=== PATIENT | female | born 1985 | race Caucasian/White ===

== ENCOUNTER → 2019-06-15 09:21 | Outpatient (CLI) | payer OTHER, SELFPAY ==
--- NOTE | ~2019-06-15 | MR_ITS ---
EXAMINATION: MR lumbar spine wo con EXAM DATE: 06/15/2019 10:16 INDICATION: Mid to low back pain for 5 years. TECHNIQUE: Multi-sequential, multiplanar MR images of the lumbar spine were obtained without contrast . Sagittal T1, T2, T2 fat saturation images. Axial T2 weighted images. Comparison is made to prior examination from 06/11/18. FINDINGS: The vertebral bodies are aligned in the AP dimension. Vertebral body and disc heights are w ell-maintained. There are no suspicious marrow signal abnormalities. The conus medullaris terminates at the T12-L1 level and has normal signal intensity and morphology. Paraspinal soft tissue is unrema rkable. Level by level evaluation: T12-L1: Disc does not extend beyond the endplate margin. Facet arthropathy: None. Neural foraminal stenosis: No stenosis. Central canal stenosis: No stenosis. L1-L2: Disc does not extend beyond the endplate margin. Facet arthropathy: Mild. Neural foraminal stenosis: No stenosis. Central canal stenosis: No stenosis. L2-L3: There is a minimal diffuse disc bulge. Facet arthropathy: Mild. Neural foraminal stenosis: Minimal left. Central canal stenosis: No stenosis. L3-L4: There is a mild diffuse disc bulge. Facet arthropathy: Mild. Neural foraminal stenosis: Mild left. Central canal stenosis: No stenosis. L4-L5: There is a mild diffuse disc bulge. Facet arthropathy: Mild. Neural foraminal stenosis: Mild bilateral. Central canal stenosis: Mild. L5-S1: There is a mild diffuse disc bulge. Facet arthropathy: Mild. Neural foraminal stenosis: Mild bilateral. Central canal stenosis: Mild. Very minimal interval progression in the mild lumbar spondylosis compared to previous study. IMPRESSION: Mild lumbar spondylosis. Reviewed, dictated and finalized at location A. NUMBERER IMPRESSION: Mild lumbar spondylosis.
--- NOTE | ~2019-06-15 | MR_ITS ---
EXAMINATION: MR thoracic spine wo con EXAM DATE: 06/15/2019 10:16 INDICATION: Radiculopathy. Mid and low back pain. TECHNIQUE: Multi-sequential, multiplanar MR images of the thoracic spine were obtained without contra st. Sagittal T1, T2, T2 fat saturation, axial T2 weighted images reviewed. Comparison is made to kishor or examination from 06/11/2018. FINDINGS: There is mild mid thoracic and lower thoracic disc disease. The thoracic neural foramen and central canal widely patent. The vertebral bodies are aligned in the AP dimension. There are no susp icious marrow signal abnormalities. The spinal cord signal intensity and intrinsic morphology is norm al. Evidence of mild thoracic facet arthropathy. Paraspinal soft tissue is unremarkable. IMPRESSION: 1. Mild thoracic spondylosis unchanged. Reviewed, dictated and finalized at location A. MATIC ENGRAVER
== END ==
PROVIDERS: Visit Provider Physician Assistant
DX: M54.17 Radiculopathy, lumbosacral region (principal); M47.817 Spondylosis without myelopathy or radiculopathy, lumbosacral region; M47.896 Other spondylosis, lumbar region; M47.894 Other spondylosis, thoracic region
CPT/HCPCS: 72146; 72148

== ENCOUNTER 2020-11-25 18:09 | Emergency (ER) | payer OTHER, SELFPAY ==
[2020-11-25 18:18] VITALS: BP 114/64; PULSE 71; RESP 18; TEMP 37.1; O2SAT 100
--- NOTE | 2020-11-25 18:27 | ED.GENADULT ---
HPI - General Adult General Chief complaint: Urogenital-Female Stated complaint: Vaginal discharge, itching Time Seen by Provider: 11/25/20 18:27 Source: patient and RN notes reviewed Mode of arrival: ambulatory Limitations: no limitations History of Present Illness HPI narrative: 35-year-old female presents with urinary complaints for the past 7 days. Shirin reports itching with clear discharge after menstrual cycle for approximately 1 week now has dysuria. Monistat 1 week ago with some relief and Azo with little to no relief. Dysuria consists of burning and frequency. Denies fever. ?No significant pelvic pain. ?No vaginal discharge.? No concerns for STDs. ?Exacerbating factors urinating.? Denies hematuria or vaginal bleeding. ?LMP 1 week ago. No flank pain. ?Denies nausea, vomiting, and abdominal pain.? Tolerating liquids well.? Remains active. ?The patient reports she has not been diagnosed with COVID-19. The patient reports she is not waiting for the results of a COVID-19 lab test. ?The patient reports she does not have chills, weakness, or fatigue. ?The patient reports he does not have a new or worsening cough or shortness of breath. ?Denies chest pain. The patient reports he does not have any rhinorrhea, congestion, loss of taste or smell, sore throat, and diarrhea. ?Denies recent traveling. Denies concerns for COVID-19 or exposures. ?At this time, the patient is not suspected of having COVID-19. ? Some parts of this dictation were generated by voice recognition software and may contain typographical and/or grammatical inaccuracies. Related Data Allergies Allergy/AdvReac Type Severity Reaction Status Date / Time No Known Allergies Allergy Verified 11/25/20 18:11 Review of Systems Review of Systems: Narrative: CONSTITUTIONAL: Denies fever, chills, sweats. EYES: Denies visual changes, redness, discharge. ENT: Denies rhinorrhea, congestion, sore throat, otalgia. CARDIOVASCULAR: Denies chest pain, palpitations, edema. RESPIRATORY: Denies dyspnea, wheezing, cough. GASTROINTESTINAL: Denies abdominal pain, nausea, vomiting, diarrhea. GENITOURINARY: Complains of vaginal itching, clear discharge, dysuria (burning and frequency). Denies hematuria. SKIN: Denies rash or itching. MUSCULOSKELETAL: Denies acute back pain, joint pain, or myalgia. NEUROLOGIC: Denies numbness or focal weakness. PSYCHIATRIC: Denies anxiety or depression. All systems reviewed & are unremarkable except as noted in HPI and below. [facility] Past Medical History Medical History (Updated 12/02/20 @ 17:46 by LANEY Short) Back pain spinal stimulator Carpal tunnel syndrome Cubital tunnel syndrome Surgical History Surgical History (Updated 12/02/20 @ 17:46 by LANEY Short) History of carpal tunnel surgery bilateral History of elbow surgery cubital tunnel surgery-bilateral History of tubal ligation Family History Family History (Updated 12/02/20 @ 17:47 by LANEY Short) Father Hypertension Hypercholesteremia Mother Hypercholesteremia Hypertension Diabetes mellitus Type 2 Social History Social History (Updated 12/02/20 @ 17:52 by LANEY Short) Smoking status: Never smoker Tobacco type: cigarettes Second hand tobacco smoke exposure: No Alcohol intake: unknown Substance use: never Substance use type: does not use Living arrangements: with family Occupation/Education: occupation Gender identity (if verbalized by the patient): Female Sexual Orientation (if Verbalized by the Patient): Straight or Heterosexual Comments At time of signature, agree with the nurse past medical, surgical, social, and family history.? There is relevant patient's history pertinent to the presenting complaint, no relevant family history pertinent to the presenting complaint. Exam Narrative: Exam Narrative: GENERAL: This is a well-nourished, well-developed patient, in no apparent distress.? T
== END 2020-11-25 18:56 | disposition home or self-care (01) ==
PROVIDERS: Emergency Provider Nurse Practitioner Family
DX: N76.0 Acute vaginitis (principal); R30.0 Dysuria
CPT/HCPCS: 81003; 87086; 99213; G0463

== ENCOUNTER 2021-08-31 17:55 | Emergency (ER) | payer OTHER, SELFPAY ==
[2021-08-31 18:24] VITALS: BP 116/62; PULSE 85; RESP 18; TEMP 36.9; O2SAT 99
--- NOTE | 2021-08-31 18:35 | ED.EAR ---
HPI - Ear Problem General Chief complaint: Ear Stated complaint: Nose Pain,Bilateral Ear Irritation Time Seen by Provider: 08/31/21 18:35 Source: patient Mode of arrival: ambulatory Limitations: no limitations History of Present Illness HPI Narrative: Shirin Barros is a 36 yo female with sinus issues, bulging disks requiring stimulator placement, and osteoarthritis, had 2 bloody noses at work yesterday, both ears and nose are hurting her. She told the tech that she has had multiple problems with her ears and that her primary care physician is planning on referring her to an ENT if she continues to have problems Related Data Allergies Allergy/AdvReac Type Severity Reaction Status Date / Time No Known Allergies Allergy Verified 08/31/21 18:40 Review of Systems Review of Systems: CONSTITUTIONAL: Denies fever, chills, sweats. EYES: Denies visual changes, redness, discharge. ENT: Denies rhinorrhea, has congestion, sore throat, has bilateral otalgia. CARDIOVASCULAR: Denies chest pain, palpitations, edema. RESPIRATORY: Denies dyspnea, wheezing, cough GASTROINTESTINAL: Denies abdominal pain, nausea, vomiting, diarrhea. GENITOURINARY: Denies dysuria, hematuria, abnormal discharge SKIN: Denies rash or itching. NEUROLOGIC: Denies numbness, or focal weakness. PSYCHIATRIC: Denies anxiety or depression. [facility] Past Medical History Medical History Back pain spinal stimulator Carpal tunnel syndrome Cubital tunnel syndrome Surgical History Surgical History History of carpal tunnel surgery bilateral History of elbow surgery cubital tunnel surgery-bilateral History of tubal ligation Family History Family History Father Hypertension Hypercholesteremia Mother Hypercholesteremia Hypertension Diabetes mellitus Type 2 Social History Social History Smoking status: Never smoker Tobacco type: cigarettes Second hand tobacco smoke exposure: No Alcohol intake: unknown Substance use: never Substance use type: does not use Gender identity (if verbalized by the patient): Female Sexual Orientation (if Verbalized by the Patient): Straight or Heterosexual Comments At time of signature, I agree with nursing past medical, surgical, social and family history. There is no relevant family history pertinent to the presenting complaint. Exam Narrative: GENERAL: This is a well-nourished, well-developed patient, in mild distress. HEAD: normocephalic, atraumatic. EYES: PERRL. Sclera clear/white. Vision is grossly intact. EARS: External ears normal, auditory canals mild erythema on left, erythema on right and without drainage, TMs normal without perforation. Hearing grossly intact. NOSE: External nose normal without nasal discharge, nares without redness, no rhinorrhea. Patient complaining of tenderness of nose although turbinates not red THROAT: Mucous membranes moist, posterior pharynx pink no exudate NECK: Neck supple, non-tender CARDIOVASCULAR: Regular rate and rhythm without murmurs, gallops, or rubs. RESPIRATORY: Clear to auscultation. Breath sounds equal bilaterally. No wheezes, rales, or rhonchi. GASTROINTESTINAL: Abdomen soft, SKIN: warm, intact with no suspicious lesions or rash, good texture and turgor. NEURO: awake, alert, and oriented to person, place and time. There were no obvious focal neurologic abnormalities. Steady gait EXTREMITIES: Normal range of motion. BACK: Nontender without deformity Course Course Emergency Course: Patient here complaining of ear pain and sinus stuffiness for the last 2 3 days and she states that her nose and ears are painful to touch Physical exam does not back up the level of discomfort patient is verbalizing however patient has had recurrent ear problems
== END 2021-08-31 18:52 | disposition home or self-care (01) ==
PROVIDERS: Emergency Provider Nurse Practitioner; PCP Nurse Practitioner
DX: H66.004 Acute suppurative otitis media without spontaneous rupture of ear drum, recurrent, right ear (principal); M19.90 Unspecified osteoarthritis, unspecified site; Z96.82 Presence of neurostimulator
CPT/HCPCS: 99213; G0463

== ENCOUNTER 2022-05-15 08:02 | Outpatient (CLI) | payer OTHER, SELFPAY | END 2022-05-15 08:03 | disposition home or self-care (01) | PROVIDERS: PCP Nurse Practitioner; Visit Provider Obstetrics & Gynecology | DX: R10.2 Pelvic and perineal pain (principal); Z01.818 Encounter for other preprocedural examination | CPT/HCPCS: 36415; 86850; 86900; 86901 ==

== ENCOUNTER 2022-05-17 01:03 | Day surgery (SDC) | payer OTHER, SELFPAY ==
[2022-05-09 14:16] VITALS: BMI 29.2
--- NOTE | 2022-05-09 14:21 | PC.NURSE ---
Report to the Outpatient Waiting Room, entrance under the green pavilion located off [facility], at time 1:15 on date 05/17/22. Planned Procedure Time: 3:15. Time changes happen often and if your time is changed the preop area will call you the afternoon before. - You and your visitor will be asked to self-screen and do not enter if you have any COVID symptoms. - Only one visitor is requested with a max of two and NO children visitors are allowed at this time. - The patient visitor may be requested to leave or wait in car when not with patient due to distancing restrictions. - A mask is REQUIRED within the hospital. Patients may have clear liquids (water, carbonated beverages, clear teas, apple juice) until 3 hours prior to surgery (12:15) with a maximum of 20 ounces. - No food from midnight until time of surgery Take the following medications with a SIP of water the morning of surgery: N/A Medications to discontinue per physician: N/A Date to take last dose: N/A Please no make-up, nail palestinian, hairspray, perfume, deodorant, or body powder the day of surgery. No jewelry (including any body piercings) or valuables the day of surgery, leave them at home. Please take a shower or bath the night before, or the morning of, surgery with an antibacterial soap. Wear comfortable, loose fitting clothing. - Jewelry must be removed prior to entering the operating room. Rings and piercings that are not removed may be cut off. - The hospital will not accept responsibility for valuables. - Please leave all valuables, including medications, at home the day of surgery. If you are going home after surgery, a licensed food service driver must drive you home. - NO public transportation without another adult if you receive anesthesia. - We recommend that an adult stay with you for 24 hours following discharge. - We also recommend that you do not drive, make important decision, drink alcoholic beverages, or take any drugs that were not prescribed by your health care provider for at least 24 hours after your discharge time. Follow any additional instructions given to you from your surgeon. If you or anyone in your household have experienced Covid symptoms in the past week, please notify your surgeon or the nurse liaison at the phone number below for possible testing. Telephone instructions given to PT - JOVAN GREGORY and asked if any additional questions and then verbalized understanding. Patient advised to call surgeon office or pre surgery nurse liaison [phone] if any additional questions.
--- NOTE | 2022-05-15 07:55 | P.HP_ITS ---
H&P: HPI History of Present Illness Date/Time: 05/15/22 07:55 Chief Complaint: Pelvic pain and right ovarian cyst Narrative: /37-year-old female with pelvic pain and discomfort. She is right ovarian pain. She has had negative testing for STDs under periods have been heavy but she can live with that. She is offered laparoscopy with possible right salpingo- oophorectomy. Risks and benefits reviewed including but not exclusive of aspiration pneumonia, bleeding, transfusion, perforation injury to bowel, bladder, ureters, or other internal organs with need for open laparotomy. She received the [employer] handout entitled laparoscopy. She had all questions answered and asked to proceed PMFSH Past Medical History Medical History Back pain spinal stimulator Carpal tunnel syndrome Cubital tunnel syndrome Surgical History Surgical History History of carpal tunnel surgery bilateral History of elbow surgery cubital tunnel surgery-bilateral History of tubal ligation Family History Family History Father Hypertension Hypercholesteremia Mother Hypercholesteremia Hypertension Diabetes mellitus Type 2 Social History Social History Smoking status: Never smoker Tobacco type: cigarettes Second hand tobacco smoke exposure: No Alcohol intake: never Substance use: never Substance use type: does not use Additional living arrangements comments: SON Gender identity (if verbalized by the patient): Female Sexual Orientation (if Verbalized by the Patient): Straight or Heterosexual Spiritual care concerns: No Meds Home Medications and Allergies Home Medications Medication Instructions Recorded Confirmed Type No Home Medications 05/09/22 05/09/22 History Allergies Allergy/AdvReac Type Severity Reaction Status Date / Time No Known Allergies Allergy Verified 05/09/22 14:16 Exam Const: General: cooperative, healthy appearing and comfortable Nutritional Appearance: average body habitus Orientation/consciousness: oriented to person, oriented to place and oriented to time HENMT: Head: normal to inspection Resp: Effort & Inspection: normal respiratory effort Cardio: Rate: regular rate Rhythm: regular rhythm Heart sounds: S1 normal heart sound present and S2 normal heart sound present GI: Inspection: normal to inspection : External Female Exam: normal external appearance Speculum Exam - Vagina: normal appearance of the vagina Speculum Exam - Cervix: normal appearance of the cervix Bimanual exam- vagina & uterus: enlarged Bimanual Exam- Adnexa, other: tender on the right Assessment and Plan Assessment and plan (1) Pelvic pain: Code(s): R10.2 - Pelvic and perineal pain Status: Acute (2) Right ovarian cyst: Code(s): N83.201 - Unspecified ovarian cyst, right side Status: Acute Plan Laparoscopy with possible right salpingo-oophorectomy
--- NOTE | 2022-05-16 12:12 | WPDANESEPPF ---
Anes - Initial Pre Proc Eval Procedure: Operation Date: 05/17/22 14:15 Proposed Procedures p Diagnostic Laparoscopy, Possible Right Salpingo-oophorectomy - Franco Betancourt MD Date/Time: 05/16/22 12:12 Surgeon: Franco Betancourt MD Pre Op Diagnosis: Pelvic Pain, Irg bleeding Patient Data Age: 37 Gender: F Height: 1.63 m Weight: 77.11 kg Allergies Allergy/AdvReac Type Severity Reaction Status Date / Time No Known Allergies Allergy Verified 05/17/22 12:05 Home Medications Medication Instructions Recorded Confirmed Type hydrocodone 5 mg-acetaminophen 325 1 tablet PO Q4H PRN pain #20 tabs 05/17/22 Rx mg tablet Patient hx anesthesia problems: none Family hx anesthesia problems: none Results Review: All pre-operative results and documents have been reviewed as part of the pre-operative evaluation. [facility] Past Medical History Medical History Back pain spinal stimulator Carpal tunnel syndrome Cubital tunnel syndrome Surgical History Surgical History History of carpal tunnel surgery bilateral History of elbow surgery cubital tunnel surgery-bilateral History of tubal ligation Family History Family History Father Hypertension Hypercholesteremia Mother Hypercholesteremia Hypertension Diabetes mellitus Type 2 Social History Social History Smoking status: Never smoker Tobacco type: cigarettes Second hand tobacco smoke exposure: No Alcohol intake: never Substance use: never Substance use type: does not use Living arrangements: with family Additional living arrangements comments: SON Gender identity (if verbalized by the patient): Female Sexual Orientation (if Verbalized by the Patient): Straight or Heterosexual Spiritual care concerns: No Anes - Eval Final PreProcedure Day of Procedure 05/16/22 12:12 Patient weight: overweight Heart: regular rate and rhythm Lungs: clear to auscultation Airway: Mallampati scale class II Neurological: alert and oriented Last oral intake: >/= 8 hours ASA classification: II Emergent: no Anesthetic plan: proceed Anesthesia type and monitoring: general ETT and standard monitoring Results Review: All pre-operative results and documents have been reviewed as part of the pre-operative evaluation. Informed Consent: The patient's anesthetic plan and its attendant risks and benefits were discussed with the patient/family/POA. Questions were solicited and answers provided to the satisfaction of the patient/family/POA.
[2022-05-17] VITALS (9 sets, daily range): BP systolic 93–114; BP diastolic 42–75; PULSE 50–86; RESP 12–18; TEMP 36.1–37.1; O2SAT 59–100
--- NOTE | 2022-05-17 06:21 | WPDHPUPDATE1 ---
History and Physical Update Update Date/Time: 05/17/22 06:21 History and Physical has been reviewed, including an updated exam of the patient. There are NO changes in the patient's condition. Risks, benefits, and alternatives have been discussed and questions answered. Patient agrees to proceed with procedure.
[2022-05-17] MEDS: ACETAMINOPHEN 500 MG TABLET 1000 MG PO (12:10)
[2022-05-17] MEDS: LACTATED RINGERS 1,000 ML 30 ML IV CONT ×2 (12:39→14:21)
[2022-05-17] MEDS: KETOROLAC 15 MG/ML VIAL (*BKC) IV PUSH (12:39)
--- NOTE | 2022-05-17 13:38 | P.OP_ITS ---
Procedure Note - Detailed Date of Procedure 05/17/22 Pre-op Diagnosis Pelvic Pain, Irg bleeding Post-op Diagnosis Other (Endometriosis) Procedure Performed laparoscopic destruction endometriosis Surgeon Franco Betancourt MD Anesthesia General Indications cyst 37 year female history of pelvic pain dyspareunia and irregular bleeding. Findings Mildly enlarged uterus was noted which was floppy and retroverted. Endometrial implants in the form of powder burn were seen right ovary and right uterosacral ligament. About 20cc of serosanguineous fluid was also seen in the pelvis. Appendix was normal. The opposite ovary was normal. Description of Procedure Patient was prepped draped in normal sterile fashion placed in dorsal lithotomy position. Under excellent general trach anesthesia weighted speculum placed posterior fornix vagina. Anterior lip of cervix grasped with single- tooth tenaculum. The Gandara's cannula inserted the cervix attached to the single-tooth. This was to be used later you for uterine manipulation. The bladder emptied of clear urine in the gloves were changed. A supraumbilical incision made the Veress needle passed in the abdomen. Abdomen filled with CO2 gas [id number]. The 5mm trocar advanced directly into the abdomen with the Optiview and no injury seen. Patient placed in Trendelenburg and a suprapubic incision made. The 5mm trocar advanced under direct visualization assuring no injury. The above findings were seen and met an Ten Masters window was seen along the right uterosacral ligament the cul-de-sac had areas of powder burn endometriosis. The right ovary had an area of endometriosis and which was cauterized at 35 w per 2nd. The appendix appeared grossly within normal limits no other abnormalities were seen. The areas of endometriosis were then cauterized at 35 w per 2nd with monopolar cautery. Irrigation was undertaken until clear. The lower sites removed. The gas removed from the abdomen. The upper site removed. The incisions closed with 4 Monocryl glue. Instruments removed from the vagina. All sponge, needle, instrument counts were correct there were no immediate complications Estimated Blood Loss 5 Drains No Packing No Pathology None sent Complications No immediate complications Condition Stable Disposition PACU
[2022-05-17] MEDS: fentaNYL CITRATE INJ (*CRX) 100 MCG/2 ML VIAL 25 MCG IV PUSH ×4 (14:02→14:23)
[2022-05-17] MEDS: oxyCODONE HCL (*CRX) 5 MG TAB IR PO (15:00)
== END 2022-05-17 15:51 | disposition home or self-care (01) ==
PROVIDERS: PCP Nurse Practitioner; Visit Provider Obstetrics & Gynecology
PROC: (CPT 49320; principal; 2022-05-17 14:15)
DX: N80.101 Endometriosis of right ovary, unspecified depth (principal); N80.3C1 Endometriosis of the right uterosacral ligament, unspecified depth; N93.9 Abnormal uterine and vaginal bleeding, unspecified; R10.2 Pelvic and perineal pain; N94.10 Unspecified dyspareunia
CPT/HCPCS: 58662; 36415; 86850; 86900; 86901; A9270; J0330; J1100; J1885; J2250; J2405; J2704; J2710; J3010; J7030; J7120

== ENCOUNTER 2022-09-30 07:50 | Outpatient (CLI) | payer OTHER, SELFPAY ==
[2022-09-30 08:31] LABS: Basophils Percent Auto 0.6 % (0.2-1.2); Eosinophils Absolute Auto 0.1 K/mm3 (0-0.3); Eosinophils Percent Auto 2.1 % (0-4.4); Hematocrit 38.9 % (37.0-47.0); Hemoglobin 13.1 g/dL (12.0-15.0); Immature Granulocyte Absolute 0.03 K/mm3 (0.00-0.031); Immature Granulocyte Percent A 0.5 % (0-0.5); Lymphocytes Absolute Auto 2.78 K/mm3 (0.9-3.2); Lymphocytes Percent Auto 44.1 % (18.3-44.2); Mean Corpuscular HGB Conc 33.7 g/dl (32-36); Mean Corpuscular Hemoglobin 31.6 pg (26-34); Mean Platelet Volume 9.4 fl (7.4-10.4); Monocytes Absolute Auto 0.5 K/mm3 (0.1-0.6); Monocytes Percent Auto 7.8 % (2.6-8.5); Neutrophils Absolute Auto 2.8 K/mm3 (1.3-6.7); Neutrophils Percent Auto 44.9 % (45.5-73.1); Platelet Count Result 228 k/mm3 (150-375); Red Blood Count 4.14 M/mm3 (4.2-5.4); Red Cell Distribution Width 11.9 % (11.5-14.5); White Blood Count 6.3 K/mm3 (4.5-10.0)
== END 2022-09-30 07:51 | disposition home or self-care (01) ==
PROVIDERS: PCP Nurse Practitioner; Visit Provider Obstetrics & Gynecology
DX: R10.2 Pelvic and perineal pain (principal); Z01.818 Encounter for other preprocedural examination
CPT/HCPCS: 36415; 85025; 86850; 86900; 86901

== ENCOUNTER 2022-10-04 01:56 | Day surgery (SDC) | payer OTHER, SELFPAY ==
[2022-09-26 16:28] VITALS: BMI 26.4
--- NOTE | 2022-09-26 16:49 | PC.NURSE ---
Report to the Outpatient Waiting Room, entrance under the green pavilion located off [facility], at time _0600 on date 10/04/22_. Planned Procedure Time: 0730_. Time changes happen often and if your time is changed the preop area will call you the afternoon before. - You and your visitor will be asked to self-screen and do not enter if you have any COVID symptoms. - A mask is optional within the hospital at this time. Patients may have clear liquids (water, carbonated beverages, clear teas, apple juice) until 3 hours prior to surgery with a maximum of 20 ounces. - No food from midnight until time of surgery - Infants may have breast milk until 4 hours before surgery, formula 6 hours prior to surgery. - Children will be allowed to drink immediately following surgery. If applicable, please bring a bottle or sippy cup to assist with drinking. Juice, water, soda, and popsicles are readily available. For infants on formula, please bring formula the day of surgery. Pacifiers are allowed. Take the following medications with a SIP of water the morning of surgery: _n/a____ DO NOT STOP ANY OF YOUR OTHER PRESCRIPTION MEDICATIONS PRIOR TO SURGERY ?EXCEPT THE FOLLOWING Medications to discontinue per physician __n/a Date to take last dose Please no make-up, nail emirati, hairspray, perfume, deodorant, or body powder the day of surgery. No jewelry (including any body piercings) or valuables the day of surgery, leave them at home. Please take a shower or bath the night before, or the morning of, surgery with an antibacterial soap. Wear comfortable, loose fitting clothing. Children are encouraged to wear pajamas. - Jewelry must be removed prior to entering the operating room. Rings and piercings that are not removed may be cut off. - The hospital will not accept responsibility for valuables. - Please leave all valuables, including medications, at home the day of surgery. If you are going home after surgery, a licensed charter driver must drive you home. - NO public transportation without another adult if you receive anesthesia. - We recommend that an adult stay with you for 24 hours following discharge. - We also recommend that you do not drive, make important decision, drink alcoholic beverages, or take any drugs that were not prescribed by your health care provider for at least 24 hours after your discharge time. For Pediatric surgeries, we recommend two adults accompany the child home. Follow any additional instructions given to you from your surgeon. If you or anyone in your household have experienced Covid symptoms in the past week, please notify your surgeon or the nurse liaison at the phone number below for possible testing. Telephone instructions given to Shirin Seguraand asked if any additional questions and then verbalized understanding. Patient advised to call surgeon office or pre surgery nurse liaison [phone] if any additional questions.
--- NOTE | 2022-10-03 07:29 | PM.IMHP ---
H&P: HPI History of Present Illness Date/Time: 10/03/22 07:29 Chief Complaint: Pelvic pain uterine prolapse Narrative: 37 female 2 para 2 robotic total vaginal hysterectomy and bilateral salpingectomy secondary to uterine prolapse and chronic pelvic pain. She has a history of endometriosis as well. Ovaries will remain. Risks and benefits of this procedure reviewed including not exclusive of , aspiration pneumonia, bleeding, transfusion, perforation injury to bowel, bladder, ureters or other internal organs with need for open laparotomy. She received the [employer] handout entitled hysterectomy as well as the de Subha handout. She had all questions answered. She asked to proceed PMFSH Past Medical History Medical History Back pain spinal stimulator Carpal tunnel syndrome Cubital tunnel syndrome Surgical History Surgical History History of carpal tunnel surgery bilateral History of elbow surgery cubital tunnel surgery-bilateral History of tubal ligation Family History Family History Father Hypertension Hypercholesteremia Mother Hypercholesteremia Hypertension Diabetes mellitus Type 2 Social History Social History Smoking status: Never smoker Tobacco type: cigarettes Second hand tobacco smoke exposure: No Alcohol intake: never Substance use: never Substance use type: does not use Living arrangements: with family Additional living arrangements comments: SON Occupation/Education: occupation Gender identity (if verbalized by the patient): Female Sexual Orientation (if Verbalized by the Patient): Straight or Heterosexual Spiritual care concerns: No Meds Home Medications and Allergies Home Medications Medication Instructions Recorded Confirmed Type No Home Medications 09/26/22 09/26/22 History Allergies Allergy/AdvReac Type Severity Reaction Status Date / Time No Known Allergies Allergy Verified 05/17/22 12:05 Exam Const: General: cooperative, healthy appearing, comfortable and average body habitus Nutritional Appearance: average body habitus Orientation/consciousness: oriented to person, oriented to place and oriented to time HENMT: Head: normal to inspection Resp: Effort & Inspection: normal respiratory effort Cardio: Rate: regular rate Rhythm: regular rhythm Heart sounds: S1 normal heart sound present and S2 normal heart sound present GI: Inspection: normal to inspection Auscultation: normal bowel sounds : External Female Exam: normal external appearance Speculum Exam - Vagina: normal appearance of the vagina Speculum Exam - Cervix: normal appearance of the cervix ( second-degree prolapse present) Bimanual exam- vagina & uterus: enlarged Bimanual Exam- Adnexa, other: normal adnexae Assessment and Plan Assessment and plan (1) Pelvic pain: Code(s): R10.2 - Pelvic and perineal pain Status: Acute (2) Uterine prolapse: Code(s): N81.4 - Uterovaginal prolapse, unspecified Status: Acute Plan robotic total vaginal hysterectomy and bilateral salpingectomy
[2022-10-04] VITALS (12 sets, daily range): BP systolic 89–122; BP diastolic 50–71; PULSE 58–85; RESP 10–18; TEMP 36–37; O2SAT 98–100
--- NOTE | 2022-10-04 06:25 | WPDHPUPDATE1 ---
History and Physical Update Update Date/Time: 10/04/22 06:25 History and Physical has been reviewed, including an updated exam of the patient. There are NO changes in the patient's condition. Risks, benefits, and alternatives have been discussed and questions answered. Patient agrees to proceed with procedure.
[2022-10-04] MEDS: LACTATED RINGERS 1,000 ML 30 ML IV CONT ×2 (06:28→08:48)
[2022-10-04] MEDS: KETOROLAC 15 MG/ML VIAL (*BKC) IV PUSH (06:30)
[2022-10-04] MEDS: ACETAMINOPHEN 500 MG TABLET 1000 MG PO (06:30)
--- NOTE | 2022-10-04 06:39 | WPDHPUPDATE1 ---
History and Physical Update Update Date/Time: 10/04/22 06:39 History and Physical has been reviewed, including an updated exam of the patient. There are NO changes in the patient's condition. Risks, benefits, and alternatives have been discussed and questions answered. Patient agrees to proceed with procedure. rso will be perfomed
--- NOTE | 2022-10-04 07:11 | P.PNAN_ITS ---
Anes - Initial Pre Proc Eval Procedure: Operation Date: 10/04/22 07:30 Proposed Procedures p Robotic Assisted Total Vaginal Hysterectomy, Right Salpingo-oophorectomy with Left Salpingectomy - Franco Betancourt MD Date/Time: 10/04/22 07:11 Surgeon: Franco Betancourt MD Pre Op Diagnosis: Uterine Prolapse, Endometrosis, Pelvic Pain Patient Data Age: 37 Gender: F Height: 1.63 m Weight: 75.3 kg Last Vital Signs Temp 96.8 F L 10/04/22 06:08 Pulse 66 10/04/22 06:08 Resp 16 10/04/22 06:08 BP 92/57 L 10/04/22 06:08 Pulse Ox 100 10/04/22 06:08 O2 Del Method Room Air 10/04/22 06:08 Allergies Allergy/AdvReac Type Severity Reaction Status Date / Time No Known Allergies Allergy Verified 10/04/22 06:12 Home Medications Medication Instructions Recorded Confirmed Type hydrocodone 5 mg-acetaminophen 325 1 tablet PO Q4H PRN pain #30 tabs 10/04/22 Rx mg tablet Patient hx anesthesia problems: none Family hx anesthesia problems: none Results Review: All pre-operative results and documents have been reviewed as part of the pre- operative evaluation. FOR[facility]LY [facility] Past Medical History Medical History Back pain spinal stimulator Carpal tunnel syndrome Cubital tunnel syndrome Surgical History Surgical History History of carpal tunnel surgery bilateral History of elbow surgery cubital tunnel surgery-bilateral History of tubal ligation Family History Family History Father Hypertension Hypercholesteremia Mother Hypercholesteremia Hypertension Diabetes mellitus Type 2 Social History Social History Smoking status: Never smoker Tobacco type: cigarettes Second hand tobacco smoke exposure: No Alcohol intake: never Substance use: never Substance use type: does not use Living arrangements: with family Additional living arrangements comments: SON Occupation/Education: occupation Gender identity (if verbalized by the patient): Female Sexual Orientation (if Verbalized by the Patient): Straight or Heterosexual Spiritual care concerns: No Anes - Eval Final PreProcedure Day of Procedure 10/04/22 07:11 Patient weight: normal Heart: regular rate and rhythm Lungs: clear to auscultation Airway: Mallampati scale class II Neurological: alert and oriented Last oral intake: >/= 8 hours ASA classification: II Emergent: no Anesthetic plan: proceed Anesthesia type and monitoring: general ETT and standard monitoring Results Review: All pre-operative results and documents have been reviewed as part of the pre- operative evaluation. Informed Consent: The patient's anesthetic plan and its attendant risks and benefits were discussed with the patient/family/POA. Questions were solicited and answers provided to the satisfaction of the patient/family/POA.
[2022-10-04] MEDS: ceFAZolin 2 GM/D5W 50 ML 2 GM/50 ML BAG IVPB (07:26)
--- NOTE | 2022-10-04 08:38 | P.OP_ITS ---
Procedure Note - Detailed Date of Procedure 10/04/22 Pre-op Diagnosis Uterine Prolapse, Endometrosis, Pelvic Pain Post-op Diagnosis Same Procedure Performed Robotic total vaginal hysterectomy right salpingo-oophorectomy left salpingectomy Surgeon Franco Betancourt MD Anesthesia General Indications this is a 37-year-old female prolapse pain and right ovarian discomfort. Findings Enlarged uterus with uterine prolapse. Right ovarian cyst with normal-appeari ng left ovary. Tubes status post tubal ligation Description of Procedure patient was prepped draped in the sterile fashion placed in dorsal lithotomy position. Under excellent general trach anesthesia weighted speculum placed posterior fornix vagina. Anterior lip of cervix grasped single-tooth tenaculum. Uterus sounded to 10cm. Serial dilatation fragment followed passes the 10. RASHID and the 3. Cold cup. Next the 16 [place]ian catheter placed in bladder draining clear urine. The weighted speculum and single-tooth removed the gloves were changed. Supraumbilical incision made the Veress needle passed in the abdomen. Abdomen filled with CO2 gas 15 was mercury. The 8mm trocar advanced the abdomen. Downside visualized or seen. Patient placed in Trendelenburg 20? and right left lower quadrant incision made. 8Mm trocars advanced in the abdomen under direct visualization assuring no injury. Right upper quadrant incision made and the 8mm trocar advanced under direct visualization assuring no injury. The robot was docked. Attention was turned to the prison classification counselor. The left round ligament grasped, burned, cut. Anterior bladder flap was formed by sharply dissecting the peritoneum and reflecting the bladder caudally away from the cervix uterus the opposite round ligament was clamped, burned, cut. The left fallopian tube was taken piecemeal as it been resected past passed through the right upper quadrant incision. The infundibulopelvic structure on the right was skeletonized to right ovary tube. Clamped, burned, cut brought to the level previous cut. Cardinal broad ligaments 1st skeletonized clamping burning cutting and hugging the cervix uterus until the vessels could be seen on the left. These were individually clamped, burned, cut. In like fashion the cardinal broad ligaments on the right were serially skeletonized clamping burning cutting and bring this down lateral edge the uterus and cervix into the uterine vessels could be seen on the right. These were individually clamped, burned, cut. Blanching the uterus was noted. A colpotomy incision made cervix uterus and tubes and right ovary removed through the vagina. Vagina closed with continuous running 0V lock from lateral edge to lateral edge back to midline. Irrigation undertaken to clear and [place] term placed on the raw surface area. Blood loss estimated 25cc. The robot was undocked after gas removed from the abdomen. The incisions closed with 4 Monocryl glue. Patient was awakened went recovery in satisfactory condition. All sponge needle, and instrument counts were correct. There were no immediate complications noted Estimated Blood Loss 25 Drains No Packing No Pathology Yes Complications No immediate complications Condition Stable Disposition PACU
--- NOTE | 2022-10-04 09:06 | PM.DS ---
DS: Admitting Diagnosis Discharge Date Admitting Diagnosis pelvic pain /uterine prolapse/right ovarian cyst DS: Discharge Diagnosis Discharge Diagnosis (1) Uterine prolapse: Code(s): N81.4 - Uterovaginal prolapse, unspecified Status: Acute (2) Right ovarian cyst: Code(s): N83.201 - Unspecified ovarian cyst, right side Status: Acute (3) Pelvic pain: Code(s): R10.2 - Pelvic and perineal pain Status: Acute DS: Summary Hospital Course Reason for hospitalization: patient was admitted for robotic total vaginal hysterectomy with right salpingo-oophorectomy and left salpingectomy Hospital Course: patient underwent the above-named procedure on 10 04 2022. Her hospital course was unremarkable. She remained afebrile. She was up, voiding without difficulty, eating regular diet, ambulating, and generally without complaints. Time Spent with Patient Time attestation: Total time spent providing and/or coordinating discharge services: Exam Const: General: cooperative, healthy appearing, comfortable and well groomed Nutritional Appearance: average body habitus Orientation/consciousness: oriented to person, oriented to place and oriented to time Resp: Effort & Inspection: normal respiratory effort Cardio: Rate: regular rate Rhythm: regular rhythm Heart sounds: S1 normal heart sound present and S2 normal heart sound present GI: Inspection: normal to inspection and incision ( Wounds are clean dry and intact) DS: Data Data Completed and Pending Pending studies at discharge: Pending at discharge 10/04/22 08:17 Surgical [PTH] Routine Discharge Plan Discharge Patient Disposition: Home, Self-Care Stand Alone Forms: General Discharge Instructions Follow-up/Referrals: Franco Wolf MD [Physician] - Discharge Medications: New hydrocodone-acetaminophen 5-325 mg tablet 1 tablet PO Q4H PRN (Reason: pain) Qty: 30 0RF
[2022-10-04] MEDS: fentaNYL CITRATE INJ (*CRX) 100 MCG/2 ML VIAL 25 MCG IV PUSH ×8 (09:09→09:50)
--- NOTE | 2022-10-04 10:25 | PC.NURSE ---
This patient, Shirin Barros, was received from PACU per bed on 10/04/22 at 1025. Patient/family oriented to unit policies and routines.
[2022-10-04] MEDS: DEXTROSE 5%/LACTATED RINGERS 1,000 ML 125 ML IV CONT (11:44)
[2022-10-04] MEDS: DOCUSATE SODIUM 100 MG CAPSULE PO (18:20)
[2022-10-04] MEDS: KETOROLAC 30 MG/ML VIAL (*BKC) IV PUSH (18:21)
[2022-10-05] VITALS: BP 91/53; PULSE 64; RESP 18; TEMP 36.8; O2SAT 99
[2022-10-05] MEDS: HYDROcodone/acetaminophen (*CRX) 5-325 MG TABLET 1 TAB PO ×2 (00:28→07:14)
[2022-10-05] MEDS: KETOROLAC 30 MG/ML VIAL (*BKC) IV PUSH (03:43)
[2022-10-05 03:48] VITALS: BP 103/63; PULSE 78; RESP 18; TEMP 37; O2SAT 96
[2022-10-05 05:39] LABS: Basophils Percent Auto 0.2 % (0.2-1.2); Eosinophils Percent Auto 0.1 % (0-4.4); Hematocrit 33.6 % (37.0-47.0); Hemoglobin 11.5 g/dL (12.0-15.0); Immature Granulocyte Absolute 0.03 K/mm3 (0.00-0.031); Immature Granulocyte Percent A 0.3 % (0-0.5); Lymphocytes Percent Auto 20.5 % (18.3-44.2); Mean Corpuscular HGB Conc 34.2 g/dl (32-36); Mean Corpuscular Hemoglobin 31.8 pg (26-34); Mean Corpuscular Volume 92.8 fl (80-100); Mean Platelet Volume 9.7 fl (7.4-10.4); Monocytes Absolute Auto 0.5 K/mm3 (0.1-0.6); Monocytes Percent Auto 4.5 % (2.6-8.5); Neutrophils Absolute Auto 8.4 K/mm3 (1.3-6.7); Neutrophils Percent Auto 74.4 % (45.5-73.1); Platelet Count Result 193 k/mm3 (150-375); Red Blood Count 3.62 M/mm3 (4.2-5.4); Red Cell Distribution Width 11.9 % (11.5-14.5); White Blood Count 11.2 K/mm3 (4.5-10.0)
--- NOTE | 2022-10-05 07:01 | PM.GYNPNOP ---
FLY RAISER LOCKSTITCH - A/P Postoperative Procedures: Procedures Operation Date: 10/04/22 07:30 Actual Procedure Side Surgeon p Robotic Assisted Total Vaginal Hysterectomy, Right Salpingo-oophorectomy with Left Salpingectomy Bilateral Franco Betancourt MD Postoperative day: 1 Postoperative status: doing well Postoperative plan: routine post-op care, see orders, ambulate, advance diet, voiding trials and discharge Time Spent With Patient Time: Total time spent is greater than 50% in coordination of care (as documented) at patient's floor/unit and/or counseling patient: Time with patient: less than 15 minutes FLY RAISER LOCKSTITCH- PN:Subj Post-Op Subjective Date/time seen: 10/05/22 07:01 Subjective: patient has no complaints, patient desires discharge and patient is tolerating oral intake Exam Const: General: cooperative, healthy appearing and comfortable Nutritional Appearance: average body habitus Orientation/consciousness: oriented to person, oriented to place and oriented to time HENMT: Head: normal to inspection Resp: Effort & Inspection: normal respiratory effort Cardio: Rate: regular rate Rhythm: regular rhythm Heart sounds: S1 normal heart sound present and S2 normal heart sound present GI: Inspection: normal to inspection and incision ( wounds clean dry and intact) FLY RAISER LOCKSTITCH - PN: Obj Data Vital Signs Vital Signs: Vital Signs - 24 hr 10/04/22 08:48 10/04/22 09:00 10/04/22 09:15 Temperature 97.1 F L Pulse Rate 85 66 65 Respiratory Rate 13 16 14 Blood Pressure 122/70 112/65 104/71 Pulse Oximetry 100 100 100 Oxygen Delivery Simple Face Mask Simple Face Mask Simple Face Mask Oxygen Flow Rate 8 8 8 10/04/22 09:30 10/04/22 09:45 10/04/22 09:49 Temperature Pulse Rate 65 59 L Respiratory Rate 12 10 L Blood Pressure 109/64 105/55 L Pulse Oximetry 100 100 100 Oxygen Delivery Simple Face Mask Simple Face Mask Room Air Oxygen Flow Rate 8 8 10/04/22 10:00 10/04/22 10:15 10/04/22 11:00 Temperature Pulse Rate 74 65 Respiratory Rate 12 12 Blood Pressure 104/50 L 106/64 Pulse Oximetry 100 98 Oxygen Delivery Room Air Room Air Room Air Oxygen Flow Rate 10/04/22 10:30 10/04/22 17:40 10/04/22 17:40 Temperature 97.8 F 98.6 F Pulse Rate 58 L 68 Respiratory Rate 16 18 Blood Pressure 95/59 L 104/58 L Pulse Oximetry 98 Oxygen Delivery Room Air Oxygen Flow Rate 10/04/22 20:00 10/05/22 00:00 10/05/22 00:00 Temperature 97.9 F 98.3 F Pulse Rate 71 64 64 Respiratory Rate 18 18 18 Blood Pressure 89/54 L 91/53 L Pulse Oximetry 99 99 99 Oxygen Delivery Room Air Oxygen Flow Rate 10/05/22 03:48 10/05/22 04:00 Temperature 98.6 F Pulse Rate 78 Respiratory Rate 18 Blood Pressure 103/63 Pulse Oximetry 96 Oxygen Delivery Room Air Oxygen Flow Rate Intake/Output Intake/Output: Intake & Output 10/02/22 10/03/22 10/04/22 10/05/22 23:59 23:59 23:59 23:59 Intake Total 2175 500 Output Total 1105 225 Balance 1070 275 Meds/Results Medications: Active Medications Generic Name Dose Route Start Last Admin Trade Name Freq PRN Reason Stop Dose Admin Hydrocodone Bitart/Acetaminophen 1 tab 10/04/22 10:20 Hydrocodone/Acetaminophen (*Crx) 10-325 Mg Tablet PO Q3H PRN Pain Rated 6 or Greater Hydrocodone Bitart/Acetaminophen 1 tab 10/04/22 10:20 10/05/22 00:28 Hydrocodone/Acetaminophen (*Crx) 5-325 Mg Tablet PO 1 tab Q3H PRN Administration Pain Rated 5 or Less Docusate Sodium 100 mg 10/04/22 10:20 10/04/22 18:20 Docusate Sodium 100 Mg Capsule PO 100 mg BID SALLY Administration Enoxaparin Sodium 40 mg 10/05/22 07:00 Enoxaparin 40 Mg/0.4 Ml Syringe SUB-Q DAILY@0700 SALLY Dextrose/Lactated Ringer's 1,000 mls @ 125 mls/hr 10/04/22 10:20 10/04/22 19:44 Dextrose 5%/Lactated Ringers IV CONT Infused .Q8H SALLY Infusion Ibuprofen 600 mg 10/04/22 10:20 Ibuprofen 600 Mg Tablet PO Q6H PRN Cramping Ket
[2022-10-05] MEDS: ENOXAPARIN 40 MG/0.4 ML SYRINGE SUB-Q (07:14)
[2022-10-05 07:15] VITALS: BP 93/56; PULSE 72; RESP 16; TEMP 37.1; O2SAT 100
[2022-10-05] MEDS: DOCUSATE SODIUM 100 MG CAPSULE PO (07:15)
--- NOTE | 2022-10-05 07:38 | P.PNAN_ITS ---
Anes - Prog Note Post-Op Date/Time: 10/05/22 07:38 Cardiovascular status: normal Respiratory status: normal Airway patency: baseline Mental status: baseline Post-Op hydration status: normal Vital Signs: Last Vital Signs Temp 37.0 C 10/05/22 03:48 Pulse 78 10/05/22 03:48 Resp 18 10/05/22 03:48 BP 103/63 10/05/22 03:48 Pulse Ox 96 10/05/22 03:48 O2 Del Method Room Air 10/05/22 04:00 O2 Flow Rate 8 10/04/22 09:45 Pain Score (VAS): 2 I/O: Intake & Output 10/04/22 10/04/22 10/05/22 15:59 23:59 07:59 Intake Total 325 1800 500 Output Total 100 1005 225 Balance 225 795 275 Laboratory Tests 10/05/22 03:37 10/05/22 03:37 WBC 11.2 H RBC 3.62 L Hgb 11.5 L Hct 33.6 L MCV 92.8 MCH 31.8 MCHC 34.2 RDW 11.9 Plt Count 193 MPV 9.7 Immature Gran % (Auto) 0.3 Neut % (Auto) 74.4 H Lymph % (Auto) 20.5 [place] % (Auto) 4.5 Eos % (Auto) 0.1 Baso % (Auto) 0.2 Lymph # (Auto) 2.30 [place] # (Auto) 0.5 Eos # (Auto) 0.0 Baso # (Auto) 0.0 Abs Immat Gran (auto) 0.03 Absolute Neuts (auto) 8.4 H Absolute Nucleated RBC 0.0 Nucleated RBC % 0.0 Post-procedural complaints: none Patient Feedback: Patient satisfied with anesthetic care.
== END 2022-10-05 10:17 | disposition home or self-care (01) ==
LOC: ANHSURGERY 06:26 → ANHOB2 10:25
PROVIDERS: PCP Nurse Practitioner; Visit Provider Obstetrics & Gynecology
PROC: (CPT 58552; principal; 2022-10-04 07:30)
DX: N81.4 Uterovaginal prolapse, unspecified (principal); N80.03 Adenomyosis of the uterus; N83.201 Unspecified ovarian cyst, right side; N83.8 Other noninflammatory disorders of ovary, fallopian tube and broad ligament
CPT/HCPCS: 58552; S2900; 36415; 85025; 86850; 86900; 86901; 88307; 99199; A9270; J0330; J0690; J1100; J1650; J1885; J2250; J2405; J2704; J2710; J3010; J7030; J7120; J7121